=== PATIENT | male | born 1990 | race African-American/Black ===

== ENCOUNTER 2021-04-07 12:23 | Emergency (ER) | payer OTHER ==
[~2021-04-07] VITALS: Ht 177.8 cm; Wt 63.5 kg
[2021-04-07 13:01] LABS: URINE BLOOD NEGATIVE (Negative); URINE COLOR YELLOW; URINE GLUCOSE-RANDOM* NEGATIVE (Negative); URINE KETONES TRACE (Negative); URINE LEUKOCYTES-REFLEX NEGATIVE (Negative); URINE NITRITE-REFLEX NEGATIVE (Negative); URINE PROTEIN (DIPSTICK) TRACE (Negative); URINE SPECIFIC GRAVITY >= 1.030 (1.005-1.035)
[2021-04-07 13:04] LABS: ICTOTEST (BILI CONFIRMATORY) Negative (Negative); URINE BILIRUBIN NEGATIVE (Negative); URINE CLARITY SL HAZY
[2021-04-07 13:12] LABS: ABSOLUTE NEUTROPHILS 2.3 thou/uL (1.4-8.2); BASOPHILS 0.8 % (0.0-2.0); EOSINOPHILS 4.3 % (0.0-3.0); HEMATOCRIT 46.1 % (42.0-52.0); HEMOGLOBIN 15.3 gm/dL (14.0-18.0); LYMPHOCYTES 31.8 % (24.0-44.0); MCH 28.1 pg (26.0-34.0); MCHC 33.3 g/dL (28.0-37.0); MCV 84.4 fL (80.0-100.0); MONOCYTES 19.2 % (1.0-8.0); PLATELET COUNT 197 thou/uL (150-400); POLYS 43.9 % (36.0-66.0); RBC 5.46 mil/uL (4.50-6.00); RDW 15.4 % (10.5-14.5); WBC 5.2 thou/uL (4.0-11.0)
[2021-04-07 13:27] LABS: CALCIUM 8.9 mg/dL (8.5-10.1); CREATININE 1.3 mg/dL (0.7-1.3); POTASSIUM 3.6 mmol/L (3.5-5.1)
[2021-04-07 13:33] LABS: TOTAL BILIRUBIN 0.6 mg/dL (0.2-1.0); TOTAL PROTEIN 7.5 g/dL (6.4-8.2)
[2021-04-07] MEDS ORDERED: BENTYL 10 MG CA10 MG PO (14:40)
[2021-04-07 14:52] VITALS: BP 100/61
== END 2021-04-07 14:54 | disposition home or self-care (01) ==
LOC: ER 12:23
PROVIDERS: Physician Assistant
DX: K62.5 Hemorrhage of anus and rectum (principal); R10.11 Right upper quadrant pain; F12.90 Cannabis use, unspecified, uncomplicated